=== PATIENT | female | born 1990 | race American Indian/Alaskan Native ===

== ENCOUNTER 2016-12-28 17:42 | Emergency (ER) | payer MEDICAID ==
[2016-12-28 19:56] LABS: BASO % 0.5 % (0.0-2.0); HEMATOCRIT 38.8 % (34.0-47.0); LYMPH # 0.9 K/uL (1.0-4.3); LYMPH % 11.8 % (20.0-40.0); MEAN CELL VOLUME 89.7 fL (81.0-99.0); MEAN CORPUSCULAR HEMOGLOBIN 29.2 pg (27.0-31.0); MEAN CORPUSCULAR HGB CONC 32.5 g/dL (33.0-37.0); MONO # 0.4 K/uL (0.0-0.8); MONO % 5.2 % (0.0-10.0); WHITE BLOOD COUNT 7.4 K/uL (4.8-10.8)
[2016-12-28 20:02] VITALS: RESP 18
[2016-12-28 20:03] LABS: CHLORIDE 101 mmol/L (98-107); SODIUM 137 mmol/L (132-148)
[2016-12-28 20:06] LABS: ALB/GLOB RATIO 1.2 (1.0-2.1); ALKALINE PHOSPHATASE 58 U/L (38-126); AST/SGOT 19 U/L (14-36); BILIRUBIN,TOTAL 0.8 mg/dL (0.2-1.3); BLOOD UREA NITROGEN 10 mg/dL (7-17); CARBON DIOXIDE 24 mmol/L (22-30); GFR AFRICAN-AMERICAN > 60; TOTAL PROTEIN 7.8 g/dL (6.3-8.3)
[2016-12-28 20:07] LABS: ALT/SGPT 25 U/L (9-52); CALCIUM 9.8 mg/dl (8.6-10.4); GLUCOSE,RANDOM 101 mg/dL (65-105)
[2016-12-28] MEDS ORDERED: Sodium Chloride 0.9% 1,000 ML IV STA (20:29)
[2016-12-28] MEDS ORDERED: Sodium Chloride 0.9% 1,000 ML ONE (20:49)
[2016-12-28 20:54] LABS: RBC URINE 2 /hpf (0-3); URINE BACTERIA FEW (<OCC); URINE BILIRUBIN NEGATIVE (NEGATIVE); URINE BLOOD NEGATIVE (NEGATIVE); URINE COLOR Yellow (YELLOW); URINE GLUCOSE (UA) NORMAL (Normal); URINE KETONE NEGATIVE (NEGATIVE); URINE LEUKOCYTE ESTERASE 2+ Leu/uL (Negative); URINE PROTEIN NEGATIVE (NEGATIVE); URINE UROBILINOGEN NORMAL mg/dL (0.2-1.0); WBC URINE 28 /hpf (0-5)
--- NOTE | 2016-12-28 21:34 | C.PDOC ---
History Of Present Illness A 26 year old female, who denies any significant past medical history, presents to the emergency department for headache, chest pain, shortness of breath, lightheadedness, which began 2 days ago. The patient describes her headaches as severe and constant bi-temporally and she has had these headaches once a month for 4 months. She describes her chest pain as sharp and is located in the mid- sternal region, which worsens with inspiration. The patient notes these are the exact same symptoms she had when she had bilateral pneumonia earlier in the year. The patient admits to spraining her left ACL 2 months ago and has been using a knee brace and crutches to abumlate, but a majority of the time she is immobile. The patient denies any previous DVT or PE, fever, cough, vomiting, diarrhea, abdominal pain, vaginal bleeding, dysuria, or any other complaints at this time. Time Seen by Provider: 12/28/16 19:44 Chief Complaint (Nursing): Dizziness/Lightheaded History Per: Patient History/Exam Limitations: no limitations Onset/Duration Of Symptoms: Days (x 2 days) Current Symptoms Are (Timing): Still Present Severity: Mild Recent travel outside of the [place]: No Past Medical History Vital Signs: Last Vital Signs Temp 97.8 F 12/28/16 22:41 Pulse 78 12/28/16 22:41 Resp 18 12/28/16 22:41 BP 107/70 12/28/16 22:41 Pulse Ox 100 12/28/16 22:41 Family History: States: No Known Family Hx - Social History Hx Alcohol Use: No Hx Substance Use: No - Immunization History Hx Tetanus Toxoid Vaccination: No Hx Influenza Vaccination: No Hx Pneumococcal Vaccination: No Review Of Systems Except As Marked, All Systems Reviewed And Found Negative. Constitutional: Negative for: Fever Cardiovascular: Positive for: Chest Pain Respiratory: Positive for: Shortness of Breath. Negative for: Cough Gastrointestinal: Negative for: Vomiting, Abdominal Pain, Diarrhea Genitourinary: Negative for: Dysuria, Vaginal Discharge Physical Exam - Physical Exam Additional Physical Exam Comments: Constitutional: No acute distress. Head: Normocephalic. Atraumatic. Eyes: PERRL. EOMI. ENT: Moist mucous membranes. Neck: Supple. Cardiovascular: Regular rate. Radial pulses 2+ bilaterally. Chest: reproducible chest tenderness. Respiratory: Clear to auscultation bilaterally. GI: Soft. Nontender. Nondistended. Back: No CVA tenderness. Musculoskeletal: Tenderness of left lower leg. Skin: No rash. Neurologic: Alert, no focal deficit. ED Course And Treatment - Laboratory Results Result Diagrams: 12/28/16 19:52 12/28/16 19:52 O2 Sat by Pulse Oximetry: 99 Medical Decision Making Medical Decision Making: Treatment plan: -- Angio chest pe CT -- Head CT -- Chest X-ray -- Toradol, IV Fluids ED OBSERVATION Discharge: Yes Date of observation admission: 12/28/16 Time of observation admission: 20:29 - Observation admission statement Patient is being placed in observation because:: Chief complaint - Goals of Observation Goals of observation are:: CT - Progress Note Progress Note: [address] 2333 IMPRESSION: No pulmonary embolism. The lungs are clear. IMPRESSION: No acute intracranial hemorrhage, or suspicious mass effect. Labs unremarkable. Normal vital signs. Will discharge, supportive care, f/u PMD and Ortho, return to ER for worsening pain, fever, vomiting, dyspnea, or any other problem. Disposition - Disposition Disposition: HOME/ ROUTINE Disposition Time: 20:29 Condition: STABLE Prescriptions: Nitrofurantoin Macrocrystals [Macrobid] 100 mg PO BID #20 cap Instructions: Acute Headache (ED), Chest Wall Pain (ED) Forms: [facility] (American) - Clinical Impression Clinical Impression: Chest wall pain, Headache - Scribe Statement The provider has reviewed the documentation as recorded by the Scribe Jade Ryan All medical record entries made by the Scribe were at my direction and personally dictated by me. I have reviewed the chart and agree that the record accurately reflects my personal performance of the history, physical exam, medical decision making, and the department course for this patient. I have also personally directed, reviewed, and agree with the discharge instructions and disposition.
[2016-12-28] MEDS ORDERED: Iodixanol 320 MG/ML 100 ML BOTTLE IV ONE (21:52)
--- NOTE | 2016-12-28 22:55 | CT ---
EXAM: CT Head Without Intravenous Contrast CLINICAL HISTORY: 26 years old, female; Pain; Headache; Headache not specified TECHNIQUE: Axial computed tomography images of the head/brain without intravenous contrast. All CT scans at this facility use one or more dose reduction techniques, viz.: automated exposure control; ma/kV adjustment per patient size (including targeted exams where dose is matched to indication; i.e. head); or iterative reconstruction technique. COMPARISON: No relevant prior studies available. FINDINGS: Brain: No acute intracranial hemorrhage. No significant white matter disease. No edema. Ventricles: No significant ventriculomegaly. Bones: No acute displaced fracture. Sinuses: Unremarkable as visualized. No acute sinusitis. Mastoid air cells: Unremarkable as visualized. No mastoid effusion. IMPRESSION: No acute intracranial hemorrhage, or suspicious mass effect.
--- NOTE | 2016-12-28 22:58 | CT ---
EXAM: CT Angiography Chest With Intravenous Contrast CLINICAL HISTORY: 26 years old, female; Pain; Angina pectoris; Additional info: Chest pain, dyspnea TECHNIQUE: Axial computed tomographic angiography images of the chest with intravenous contrast using pulmonary embolism protocol. All CT scans at this facility use one or more dose reduction techniques, viz.: automated exposure control; ma/kV adjustment per patient size (including targeted exams where dose is matched to indication; i.e. head); or iterative reconstruction technique. MIP reconstructed images were created and reviewed. Coronal and sagittal reformatted images were created and reviewed. CONTRAST: 100 mL of VISIPAQUE 320 administered intravenously. COMPARISON: No relevant prior studies available. FINDINGS: Pulmonary arteries: No pulmonary embolism. Aorta: No thoracic aortic aneurysm. Lungs: No mass. No consolidation. Pleural spaces: No significant effusion. No pneumothorax. Heart: No cardiomegaly. No significant pericardial effusion. No evidence of right heart dysfunction. Bones: No acute fracture. Lymph nodes: No pathologically enlarged lymph nodes. IMPRESSION: No pulmonary embolism. The lungs are clear.
[2016-12-28 23:36] VITALS: O2SAT 99
[2016-12-28 23:53] VITALS: BP 103/60; PULSE 74; TEMP 98.2
--- NOTE | 2016-12-29 10:17 | RAD ---
HISTORY: chest pain COMPARISON: CTA chest performed 12/28/16 TECHNIQUE: Chest PA and lateral FINDINGS: LUNGS: No focal consolidation. Please note that chest x-ray has limited sensitivity for the detection of pulmonary masses. PLEURA: No significant pleural effusion identified. No definite pneumothorax . CARDIOVASCULAR: The cardiomediastinal silhouette appears within normal limits of size. OSSEOUS STRUCTURES: No acute osseous abnormality identified. VISUALIZED UPPER ABDOMEN: Unremarkable. OTHER FINDINGS: None. IMPRESSION: No focal consolidation, significant pleural effusion, or definite pneumothorax identified.
--- NOTE | 2016-12-29 11:42 | CARD ---
APPROVED REPORT EKG Measurement Heart [id number] <Conclusion> Normal sinus rhythm T wave abnormality, consider inferior ischemia T wave abnormality, consider anterolateral ischemia Prolonged QT Abnormal ECG
== END 2016-12-29 | disposition home or self-care (01) ==
LOC: C.ER 17:42
DX: R07.89 Other chest pain (principal); R51 Headache
CPT/HCPCS: 70450; 71020; 71275; 80053; 81001; 84484; 84703; 85025; 85378; 93005; 96361; 96374; 99285; J1885; J7040; Q9967

== ENCOUNTER 2017-04-14 11:23 | Emergency (ER) | payer MEDICAID ==
[2017-04-14 11:34] VITALS: O2SAT 100
--- NOTE | 2017-04-14 12:21 | C.PDOC ---
History Of Present Illness 26 y/o female presents to the ED complaining of chest pains which have been present for the past five days. Patient states that she was admitted to [facility] during the summer for pneumonia. She denies any cough or shortness of breath. She denies taking control. Time Seen by Provider: 04/14/17 11:51 Chief Complaint (Nursing): Chest Pain History Per: Patient History/Exam Limitations: no limitations Onset/Duration Of Symptoms: Days Current Symptoms Are (Timing): Still Present Quality: Sharp, Aching Exacerbating Factors: None Recent travel outside of the [place]: No Past Medical History Reviewed: Historical Data, Nursing Documentation, Vital Signs Vital Signs: Last Vital Signs Temp 98.3 F 04/14/17 13:47 Pulse 77 04/14/17 13:47 Resp 18 04/14/17 13:47 BP 109/71 04/14/17 13:47 Pulse Ox 100 04/14/17 17:41 - Medical History PMH: No Chronic Diseases, Pneumonia Surgical History: No Surg Hx Family History: States: No Known Family Hx - Social History Hx Alcohol Use: No Hx Substance Use: No - Immunization History Hx Tetanus Toxoid Vaccination: No Hx Influenza Vaccination: No Hx Pneumococcal Vaccination: No Review Of Systems Except As Marked, All Systems Reviewed And Found Negative. Constitutional: Negative for: Fever, Chills Cardiovascular: Positive for: Chest Pain Respiratory: Negative for: Cough, Shortness of Breath Gastrointestinal: Negative for: Nausea, Vomiting Physical Exam - Physical Exam Appears: Non-toxic, No Acute Distress Skin: Normal Color, Warm, Dry Head: Atraumatic, Normacephalic Oral Mucosa: Moist Chest: Symmetrical, Tenderness (anterior chest wall) Cardiovascular: Rhythm Regular Respiratory: Normal Breath Sounds, No Rales, No Wheezing Neurological/Psych: Oriented x3, Normal Speech, Normal Cognition ED Course And Treatment - Laboratory Results Urine POC: Negative ECG: Interpreted By Me ECG Rhythm: Sinus Rhythm ECG Interpretation: Normal, No Acute Changes Rate From EC O2 Sat by Pulse Oximetry: 100 (RA) Pulse Ox Interpretation: Normal - Radiology CXR: Interpreted by Me CXR Interpretation: Yes: No Acute Disease Progress Note: Treated with motrin 600 mg PO. On re-evaluation lungs clear, in no distress. Discharged in stable condition Reassessment Condition: Improved Medical Decision Making Medical Decision Making: Impression: Chest Pain Plan: --CXR --EKG --Urinalysis Patient reports history of pneumonia, denies and fever, chill or cough Patient has reproachable chest pain worse with movement Disposition Counseled Patient/Family Regarding: Diagnosis, Need For Followup, Rx Given - Disposition Referrals: [facility] [Outside] [facility] [Outside] Disposition: HOME/ ROUTINE Disposition Time: 13:45 Condition: STABLE Additional Instructions: Follow up with PMD for further evaluation Prescriptions: Naproxen [Naprosyn] 1 tab PO BID PRN #25 tab PRN Reason: Pain Instructions: Chest Wall Pain (ED) Forms: [employer] (Ukrainian) - POA Present On Arrival: None - Clinical Impression Clinical Impression: Chest pain, Chest wall pain - PA / [employer]OR / Resident Statement MD/DO has reviewed & agrees with the documentation as recorded. - Scribe Statement The provider has reviewed the documentation as recorded by the Valente Jama All medical record entries made by the Scribe were at my direction and personally dictated by me. I have reviewed the chart and agree that the record accurately reflects my personal performance of the history, physical exam, medical decision making, and the department course for this patient. I have also personally directed, reviewed, and agree with the discharge instructions and disposition.
[2017-04-14 12:30] LABS: URINE BILIRUBIN NEGATIVE (NEGATIVE); URINE BLOOD NEGATIVE (NEGATIVE); URINE COLOR Yellow (YELLOW); URINE GLUCOSE (UA) NORMAL (Normal); URINE KETONE NEGATIVE (NEGATIVE); URINE LEUKOCYTE ESTERASE 2+ Leu/uL (Negative); URINE PROTEIN NEGATIVE (NEGATIVE); URINE UROBILINOGEN NORMAL mg/dL (0.2-1.0)
[2017-04-14 12:49] LABS: RBC URINE 2 /hpf (0-3); URINE BACTERIA FEW (<OCC); WBC URINE 15 /hpf (0-5)
--- NOTE | 2017-04-14 13:11 | RAD ---
HISTORY: SOB COMPARISON: Chest x-ray performed 12/28/16 TECHNIQUE: Chest PA and lateral FINDINGS: LUNGS: Minimal patchy opacity at the medial right lower lobe may reflect atelectasis/infiltrate. No focal consolidation. Please note that chest x-ray has limited sensitivity for the detection of pulmonary masses. PLEURA: No significant pleural effusion identified. No definite pneumothorax . CARDIOVASCULAR: Heart size appears within normal limits. OSSEOUS STRUCTURES: No acute osseous abnormality identified. VISUALIZED UPPER ABDOMEN: Unremarkable. OTHER FINDINGS: None. IMPRESSION: Minimal patchy opacity at the medial right lower lobe may reflect atelectasis/infiltrate. Correlate clinically.
[2017-04-14 13:48] VITALS: BP 109/71; PULSE 77; RESP 18; TEMP 98.3
== END 2017-04-14 14:23 | disposition home or self-care (01) ==
LOC: C.ER 11:23
DX: R07.89 Other chest pain (principal)